=== PATIENT | female | born 1995 | race Caucasian/White ===

== ENCOUNTER 2022-09-09 15:11 | Inpatient (IN) | payer OTHER ==
[~2022-09-09] VITALS: Ht 149.9 cm; Wt 94.0 kg
[2022-09-24] VITALS (10 sets, daily range): BP systolic 89–124; BP diastolic 51–83; PULSE 56–95; TEMP 97–98.6
[2022-09-24] MEDS ORDERED: MELATONIN ER10 MG PO (08:55)
[2022-09-25 03:07] VITALS: BP 112/72; PULSE 55; TEMP 98.2
[2022-09-25 07:38] VITALS: BP 126/88; PULSE 78; TEMP 98.3
[2022-09-25 11:04] VITALS: BP 138/89; PULSE 71; TEMP 98.6
[2022-09-25] MEDS ORDERED: ZOFRAN 4MG T4 MG/TAB PO (12:01)
[2022-09-25] MEDS ORDERED: NORCO 325 MG-51 TAB PO (12:02)
== END 2022-09-25 13:40 | disposition home or self-care (01) | DRG 621 ==
LOC: SURG 09-24 07:40 → INPTSU 09-24 07:40 → SURG 09-24 09:30
PROVIDERS: ADMIT Surgery
PROC: 0DB64Z3 Excision of Stomach, Percutaneous Endoscopic Approach, Vertical (ICD-10-PCS; principal; 2022-09-24 09:30)
DX: E66.01 Morbid (severe) obesity due to excess calories (principal); F43.10 Post-traumatic stress disorder, unspecified; D64.9 Anemia, unspecified; Z68.41 Body mass index [BMI] 40.0-44.9, adult; G47.00 Insomnia, unspecified; G89.29 Other chronic pain; M54.9 Dorsalgia, unspecified; E88.81 Metabolic syndrome and other insulin resistance; Z79.84 Long term (current) use of oral hypoglycemic drugs; Z90.49 Acquired absence of other specified parts of digestive tract; Z87.442 Personal history of urinary calculi
CPT/HCPCS: J0690; J1100; J1170; J1885; J2250; J2405; J2550; J2704; J2765; J3010; J7120